=== PATIENT | female | born 1950 | race Asian ===

== ENCOUNTER 2018-05-23 06:46 | Day surgery (SDC) | payer OTHER ==
[~2018-05-23] VITALS: Ht 149.9 cm; Wt 73.0 kg
[~2018-05-23 06:46] MED LIST: SODIUM CHLORIDE 0.9% 1,000 ML IV ONE
[2018-05-23] MEDS ORDERED: LIDOCAINE 2% 5 ML JELLY TP ONE (06:47)
[2018-05-23] MEDS ORDERED: BENZOCAINE 20% 50 MCG/SPRAY 57 GM TP ONE (06:47)
[2018-05-23] MEDS ORDERED: ALBUTEROL SULFATE 2.5 MG/0.5 ML NEB SOLUTION NEB ONE (06:47)
[2018-05-23] MEDS ORDERED: ATOR20TA86 PO (07:29)
[2018-05-23] MEDS ORDERED: OMEP20 PO (07:29)
[2018-05-23] MEDS ORDERED: LOSA50TA64 PO (07:29)
[2018-05-23] MEDS ORDERED: ALBU8.5H8 IH (07:29)
[2018-05-23] MEDS ORDERED: MONT10TA21 PO (07:29)
[2018-05-23] MEDS ORDERED: AMLO-512 PO (07:29)
[2018-05-23] MEDS ORDERED: ALBU8HFA IH (07:29)
[2018-05-23] MEDS ORDERED: MOME13HF2 IH (07:29)
[2018-05-23] MEDS ORDERED: MIDAZOLAM HCL 2 MG/2 ML VIAL ONE (07:43)
[2018-05-23] MEDS ORDERED: FentaNYL CITRATE-PF 100 MCG/2 ML VIAL ONE (07:43)
[2018-05-23] MEDS ORDERED: MethylPREDNISolone SOD SUCC 125 MG/2 ML VIAL IVP ONE (09:15)
[2018-05-23] MEDS ORDERED: MethylPREDNISolone SOD SUCC 125 MG/2 ML VIAL ONE (09:45)
[2018-05-23] MEDS ORDERED: OXYGEN THERAPY IH SCH (20:00)
== END 2018-05-23 10:50 | disposition home or self-care (01) ==
LOC: SURGERY 06:46
PROVIDERS: ATTEND Internal Medicine Critical Care Medicine
DX: J38.4 Edema of larynx (principal); B37.0 Candidal stomatitis; J84.111 Idiopathic interstitial pneumonia, not otherwise specified; J98.09 Other diseases of bronchus, not elsewhere classified; J98.8 Other specified respiratory disorders; J44.9 Chronic obstructive pulmonary disease, unspecified; I10 Essential (primary) hypertension; Z87.891 Personal history of nicotine dependence; Z87.09 Personal history of other diseases of the respiratory system; K21.9 Gastro-esophageal reflux disease without esophagitis; E78.5 Hyperlipidemia, unspecified; Z79.899 Other long term (current) drug therapy; R06.02 Shortness of breath
CPT/HCPCS: 31623; 31624; 71045; 87015; 87070; 87101; 87206; 87220; 88108; 88312; J2250; J2930; J3010; J7030

== ENCOUNTER 2021-09-15 06:04 | Day surgery (SDC) | payer MEDICARE, OTHER ==
[2021-09-12 12:29] LABS: COVID AG,FIA SOURCE NASAL SWAB
[~2021-09-15] VITALS: Ht 149.9 cm; Wt 72.7 kg
[~2021-09-15 06:04] MED LIST changes: +ALBU8.5H8 IH; +ALBU8HFA IH; +AMLO-258 PO; +ATOR20TA86 PO; +LOSA-382 PO; +MOME13HF2 IH; +MONT-35 PO; +OMEP20 PO; -SODIUM CHLORIDE 0.9% 1,000 ML IV ONE
[2021-09-15] MEDS ORDERED: LIDOCAINE 2% 5 ML JELLY TP ONE (06:05)
[2021-09-15] MEDS ORDERED: BENZOCAINE 20% 50 MCG/SPRAY 57 GM TP ONE (06:05)
[2021-09-15] MEDS ORDERED: LIDOCAINE 4% 50 ML SOLUTION TP ONE (06:05)
[2021-09-15] MEDS ORDERED: SODIUM CHLORIDE 0.9% 1,000 ML IV ONE (07:00)
[2021-09-15] MEDS ORDERED: MIDAZOLAM HCL 5 MG/ML VIAL ONE (07:42)
[2021-09-15] MEDS ORDERED: FentaNYL CITRATE PF 100 MCG/2 ML VIAL ONE (07:42)
[2021-09-15] MEDS ORDERED: MethylPREDNISolone SOD SUCC 125 MG/2 ML VIAL IVP ONE (09:00)
[2021-09-15] MEDS ORDERED: MethylPREDNISolone SOD SUCC 125 MG/2 ML VIAL ONE (09:00)
[2021-09-15] MEDS ORDERED: OXYGEN THERAPY IH SCH (20:00)
== END 2021-09-15 11:32 | disposition home or self-care (01) ==
LOC: SURGERY 06:04
PROVIDERS: ATTEND Internal Medicine Critical Care Medicine
DX: J38.4 Edema of larynx (principal); B37.0 Candidal stomatitis; K21.9 Gastro-esophageal reflux disease without esophagitis; E78.00 Pure hypercholesterolemia, unspecified; J44.9 Chronic obstructive pulmonary disease, unspecified; Z87.891 Personal history of nicotine dependence; Z98.41 Cataract extraction status, right eye; Z98.890 Other specified postprocedural states; Z79.899 Other long term (current) drug therapy
CPT/HCPCS: 31623; 31624; 71045; 87015; 87070; 87101; 87206; 87220; 87426; 88184; 88185; C9803; J2250; J2930; J3010; 88108; 88305; Z7610

== ENCOUNTER 2022-09-30 06:22 | Day surgery (SDC) | payer MEDICARE, OTHER ==
[~2022-09-30] VITALS: Ht 149.9 cm; Wt 76.8 kg
[~2022-09-30 06:22] MED LIST changes: +ALBU18HF12 IH; -ALBU8HFA IH; +ATOR20TA PO; -ATOR20TA86 PO; +MOME13HF12 IH; -MOME13HF2 IH
[2022-09-30] MEDS ORDERED: LIDOCAINE 4% 50 ML SOLUTION TP ONE (06:23)
[2022-09-30] MEDS ORDERED: LIDOCAINE 2% 11 ML JELLY TP ONE (06:23)
[2022-09-30] MEDS ORDERED: BENZOCAINE 20% 50 MCG/SPRAY 57 GM TP ONE (06:23)
[2022-09-30] MEDS ORDERED: SODIUM CHLORIDE 0.9% 1,000 ML IV ONE (07:00)
[2022-09-30] MEDS ORDERED: SODIUM CHLORIDE 0.9% 1,000 ML ONE (07:32)
[2022-09-30] MEDS ORDERED: FentaNYL CITRATE PF 100 MCG/2 ML VIAL ONE (07:56)
[2022-09-30] MEDS ORDERED: MIDAZOLAM HCL 2 MG/2 ML VIAL ONE (07:57)
[2022-09-30] MEDS ORDERED: MethylPREDNISolone SOD SUCC 125 MG/2 ML VIAL ONE (09:01)
[2022-09-30 09:04] VITALS: PULSE 74; RESP 19; O2SAT 100
[2022-09-30] MEDS ORDERED: MethylPREDNISolone SOD SUCC 125 MG/2 ML VIAL IVP ONE (09:30)
== END 2022-09-30 11:20 | disposition home or self-care (01) ==
LOC: SURGERY 06:22
PROVIDERS: ATTEND Internal Medicine Critical Care Medicine
DX: J38.4 Edema of larynx (principal); B37.0 Candidal stomatitis; F17.210 Nicotine dependence, cigarettes, uncomplicated; J44.9 Chronic obstructive pulmonary disease, unspecified; I10 Essential (primary) hypertension; K21.9 Gastro-esophageal reflux disease without esophagitis; E78.00 Pure hypercholesterolemia, unspecified; Z98.890 Other specified postprocedural states
CPT/HCPCS: 31623; 88112; 87206; 87101; 87220; 87070; 31624; 71045; 87015; J3010; J2250; J2930; Q9967; J7030; Z7610